=== PATIENT | male | born 1960 | race Caucasian/White ===

== ENCOUNTER 2020-03-08 05:57 | Day surgery (SDC) | payer BC ==
--- NOTE | 2020-03-02 11:00 | NUR ---
LAB RESULTS FROM 02-27-20 [facility]. COPIES OF LABS TAKEN TO OR FOR ANESTHESIA TO REVIEW. OK PER DR PAYNE ANESTHESIOLOGIST TO USE FOR SURGERY ON 03-08-20. NO NEW ORDERS.
[~2020-03-08] VITALS: Ht 188 cm; Wt 93.0 kg
[2020-03-08 06:22] VITALS: BP 110/71
[2020-03-08 13:48] VITALS: BP 106/75
== END 2020-03-08 11:30 | disposition home or self-care (01) ==
LOC: DS 05:57 → OR 07:30 → DS 07:30
PROVIDERS: ATTEND Urology
DX: N40.0 Benign prostatic hyperplasia without lower urinary tract symptoms (principal); Z11.59 Encounter for screening for other viral diseases; E03.9 Hypothyroidism, unspecified; Z79.899 Other long term (current) drug therapy
CPT/HCPCS: J0690; J2250; J3010; U0003-CS